=== PATIENT | male | born 1990 | race Caucasian/White ===

== ENCOUNTER 2017-01-04 07:05 | Emergency (ER) | payer BC, OTHER ==
[~2017-01-04] VITALS: Ht 177.8 cm; Wt 95.3 kg
[2017-01-04] MEDS ORDERED: ONDANSETRON 4MG/2ML VIAL (J2405) IV ONE (08:15)
[2017-01-04 08:25] LABS: BASO % 0.6 % (0.0-1.0); EOS # 0.1 K/mm3 (0.0-0.50); EOS % 1.4 % (0.0-3.0); LARGE UNSTAINED CELL # 0.2 K/mm3 (0.0-0.4); LARGE UNSTAINED CELL % 2.4 % (0.0-4.0); LYMPH # 2.3 K/mm3 (1.5-6.5); LYMPH % 35.1 % (24.0-44.0); MEAN CORPUSCULAR HEMOGLOBIN 28.7 pg (27.0-33.0); MEAN CORPUSCULAR HGB CONC 34.5 g/dl (32.0-36.5); MEAN CORPUSCULAR VOLUME 83.2 fl (80.0-96.0); MONO # 0.4 K/mm3 (0.0-0.8); MONO % 6.5 % (0.0-5.0); NEUTROPHILS # 3.5 K/mm3 (1.8-7.7); PLATELET COUNT, AUTOMATED 237 k/mm3 (150-450); RED CELL DISTRIBUTION WIDTH 12.1 % (11.5-14.5); WHITE BLOOD COUNT 6.5 K/mm3 (4.0-10.0)
[2017-01-04 08:36] LABS: ALBUMIN 4.1 GM/DL (3.2-5.2); ALBUMIN/GLOBULIN RATIO 1.46 (1.00-1.93); ALKALINE PHOSPHATASE 64 U/L (45-117); ALT/SGPT 21 U/L (12-78); AMYLASE 31 U/L (25-115); ANION GAP 5 MEQ/L (8-16); AST/SGOT 20 U/L (15-37); BILIRUBIN,DIRECT < 0.1 MG/DL (0.0-0.2); BILIRUBIN,TOTAL 0.3 MG/DL (0.2-1.0); BLOOD UREA NITROGEN 17 MG/DL (7-18); CALCIUM LEVEL 8.7 MG/DL (8.5-10.1); CARBON DIOXIDE LEVEL 30 MEQ/L (21-32); CHLORIDE LEVEL 105 MEQ/L (98-107); CREATININE FOR GFR 0.92 MG/DL (0.70-1.30); GLOMERULAR FILTRATION RATE > 60.0 (>60); GLUCOSE, FASTING 98 MG/DL (70-105); SODIUM LEVEL 140 MEQ/L (136-145); TOTAL PROTEIN 6.9 GM/DL (6.4-8.2)
[2017-01-04 08:37] LABS: POTASSIUM SERUM 5.3 MEQ/L (3.5-5.1)
--- NOTE | 2017-01-04 09:20 | REP ---
ULTRASOUND ABDOMINAL WALL: Real-time sonographic evaluation of abdominal wall performed to evaluate for possible hernia. There is no sonographic evidence of anterior abdominal wall hernia in ventral midline. No mass or fluid collection is seen. IMPRESSION: No sonographic evidence of anterior abdominal wall hernia. Recommend CT scan to further evaluate if clinically indicated. Signed by Casa Fountain MD 01/04/2017 08:05 P
[2017-01-04] MEDS ORDERED: PRIL20CA9 PO (10:36)
[2017-01-04] MEDS ORDERED: ZOFR4TAB3 PO (10:38)
[2017-01-04 10:46] VITALS: BP 118/59
== END 2017-01-04 10:49 | disposition home or self-care (01) ==
LOC: M ED 08:09
DX: K29.00 Acute gastritis without bleeding (principal); S29.011A Strain of muscle and tendon of front wall of thorax, initial encounter; F17.210 Nicotine dependence, cigarettes, uncomplicated; X58.XXXA Exposure to other specified factors, initial encounter; Y92.89 Other specified places as the place of occurrence of the external cause; Y93.89 Activity, other specified; Y99.9 Unspecified external cause status
CPT/HCPCS: 36415; 76705; 80048; 80076; 82150; 83690; 85025; 96374; 99283; J2405

== ENCOUNTER → 2017-12-23 | Outpatient (CLI) | payer OTHER, BC ==
[2017-12-23 16:48] LABS: BASO % 0.4 % (0.0-1.0); EOS % 0.4 % (0.0-3.0); HEMATOCRIT 41.5 % (42.0-52.0); IMMATURE GRANULOCYTE % 0.4 % (0-3.0); LYMPH # 2.2 10^3/uL (1.5-6.5); LYMPH % 22.6 % (24.0-44.0); MEAN CORPUSCULAR HGB CONC 33.7 g/dl (32.0-36.5); MEAN CORPUSCULAR VOLUME 85.9 fl (80.0-96.0); MONO # 1.3 10^3/uL (0.0-0.8); MONO % 13.1 % (0.0-5.0); NEUTROPHILS # 6.2 10^3/uL (1.8-7.7); NEUTROPHILS % 63.1 % (36.0-66.0); PLATELET COUNT, AUTOMATED 282 10^3/uL (150-450); RED BLOOD COUNT 4.83 10^6/uL (4.30-6.10); RED CELL DISTRIBUTION WIDTH 12.4 % (11.5-14.5); WHITE BLOOD COUNT 9.8 10^3/uL (4.0-10.0)
[2017-12-23 17:52] LABS: ERYTHROCYTE SEDIMENTATION RATE 5 mm/hr (0-15)
== END ==
LOC: M WUC 14:03
DX: L04.0 Acute lymphadenitis of face, head and neck (principal)

== ENCOUNTER 2018-02-19 13:03 | Emergency (ER) | payer BC, OTHER ==
[2018-02-19] MEDS: NORCO, ANEXSIA 5/325MG TABLET (HYDROcodone/ACETAMINOPHEN) PO (13:14)
[2018-02-19] MEDS: LIDOCAINE 1% MDV 20ML VIAL IM (13:40)
[2018-02-19] MEDS: CEPHALEXIN 500 MG CAP PO (14:10)
[2018-02-19] MEDS: ADACEL/BOOSTRIX VACCINE (DIPHTH/PERTUSS/ACELL/TETANUS)0.5ML SYR (90715) IM (14:14)
== END 2018-02-19 14:34 | disposition home or self-care (01) ==
LOC: M ED 13:03
DX: S63.296A Dislocation of distal interphalangeal joint of right little finger, initial encounter (principal); X58.XXXA Exposure to other specified factors, initial encounter; Y92.320 Baseball field as the place of occurrence of the external cause; Y93.64 Activity, baseball; Y99.9 Unspecified external cause status; K21.9 Gastro-esophageal reflux disease without esophagitis; Z87.891 Personal history of nicotine dependence
CPT/HCPCS: 90715

== ENCOUNTER → 2019-12-11 | Outpatient (CLI) | payer BC, OTHER ==
[~2019-12-11] MED LIST: KEFL500C17 PO; PRIL20CA9 PO; ZOFR4TAB14 PO
--- NOTE | 2019-12-11 17:06 | REP ---
Clinical: Paresthesia. Technique: AP, lateral, bilateral oblique, flexion/extension, and open-mouth views of the cervical spine. Findings: Alignment and lordosis maintained. Vertebral bodies are intact. No acute fracture / compression injury or subluxation. No significant degenerative changes are appreciated. Open mouth view demonstrates normal C1-C2 articulation and odontoid process. Oblique views demonstrate patent neural foramen. Impression: Normal cervical spine radiographs. Electronically Signed by Andres Sifuentes MD 12/11/2019 04:58 P
== END ==
LOC: M ADAMS 16:24
PROVIDERS: ATTEND Nurse Practitioner Family
DX: R20.2 Paresthesia of skin (principal)

== ENCOUNTER 2023-01-31 04:58 | Emergency (ER) | payer BC ==
[~2023-01-31] VITALS: Ht 177.8 cm; Wt 101.0 kg
[2023-01-31] MEDS ORDERED: IBUP80TA PO (06:51)
[2023-01-31 07:09] VITALS: BP 140/80
== END 2023-01-31 07:15 | disposition home or self-care (01) ==
LOC: M ED 04:58
DX: S16.1XXA Strain of muscle, fascia and tendon at neck level, initial encounter (principal); S60.511A Abrasion of right hand, initial encounter; S42.002A Fracture of unspecified part of left clavicle, initial encounter for closed fracture; S43.102A Unspecified dislocation of left acromioclavicular joint, initial encounter; V86.56XA Driver of dirt bike or motor/cross bike injured in nontraffic accident, initial encounter; Y92.410 Unspecified street and highway as the place of occurrence of the external cause; K21.9 Gastro-esophageal reflux disease without esophagitis

== ENCOUNTER → 2023-02-22 | Outpatient (CLI) | payer BC ==
[~2023-02-22] MED LIST changes: +IBUP80TA PO
== END ==
LOC: M SOG 10:12
PROVIDERS: ATTEND Physician Assistant
DX: M25.512 Pain in left shoulder (principal)

== ENCOUNTER → 2023-03-24 | Outpatient (CLI) | payer BC | LOC: M SOG 10:03 | PROVIDERS: ATTEND Physician Assistant | DX: M25.512 Pain in left shoulder (principal); Z53.9 Procedure and treatment not carried out, unspecified reason ==